=== PATIENT | female | born 1965 | race Hispanic/Latino ===

== ENCOUNTER → 2017-07-04 | Outpatient (CLI) | payer BC ==
[~2017-07-04] MED LIST: ATORVASTATIN PO; DIATRIZOATE MEGL/DIATRIZOA SOD 30 ML BTL PO ONE; ESTRADIOL1 MG PO; FLUOXETINE HCL10 MG PO; GLIPIZIDE5 MG PO; IOPAMIDOL 370 MG/ML 200 ML INFUS..BTL INJ ONE; OMEPRAZOLE40 MG PO; SODIUM CHLORIDE 0.9% 50ML 50 ML ONE; SPIRONOLACTONE PO; VALACYCLOVIR500 MG PO
--- NOTE | 2017-07-05 07:24 | Diagnostic Imaging Report ---
CT scan abdomen and pelvis. 07/04/2017 Clinical history: Lower abdominal pain Technique: Routine protocol CT abdomen and pelvis performed after 100 mL Isovue-370 intravenous contrast. Positive enteric contrast was administered. Coronal, sagittal and axial images generated from source data. Dose: 487.14 mGy-cm Comparison: Pelvic ultrasound January 13, 2017 Findings: Clear lung bases. No pleural effusions. Normal heart size. Liver: Normal Gallbladder: Cholecystectomy. No bile duct dilation. Pancreas: Normal Spleen: Normal Adrenal glands: Normal Kidneys: 2 cm cyst at the left superior pole. Otherwise, normal Urinary bladder: Normal Uterus and adnexa: Hysterectomy. Bowel: Normal caliber. Normal appendix. Cervical differential thickening of the descending colon with regional mesenteric fat stranding. Peritoneum: Normal Vasculature: Normal. Patent portal venous system. Lymph nodes: Normal Skeleton: Intact. Soft tissues: Tiny fat-containing umbilical hernia. Otherwise, normal. Impression: Circumferential thickening of the descending colon in keeping with infectious or inflammatory colitis. This report was generated with voice-recognition technology. 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 Please interpret accordingly and contact a radiologist if there are any questions regarding the report. Signed by: Dr. Sunny Kim M.D. on 07/05/2017 7:20 AM
== END ==
LOC: CT 17:24
PROVIDERS: ATTEND Family Medicine
DX: K57.92 Diverticulitis of intestine, part unspecified, without perforation or abscess without bleeding (principal)
CPT/HCPCS: 74177; Q9967